=== PATIENT | male | born 1980 | race Caucasian/White ===

== ENCOUNTER 2018-01-11 22:22 | Emergency (ER) | payer OTHER, SELFPAY ==
[2018-01-11] MEDS ORDERED: Ketorolac Tromethamine 30 MG/ML VIAL ONE (22:31)
[2018-01-11 22:46] LABS: #Basophils 0.1 thou/uL (0.0-0.2); #Eosinphils 0.2 thou/uL (0.0-0.7); #Lymphocytes 2.4 thou/uL (1.20-3.40); #Monocytes 1.2 thou/uL (0.11-0.59); #Neutrophils 9.4 thou/uL (1.40-6.50); %Basophils 1.1 % (0.0-1.0); %Eosinophils 1.7 % (0.0-10.0); %Lymphocytes 18.3 % (21.0-51.0); %Monocytes 8.7 % (0.0-10.0); %Neutrophils 70.3 % (42.0-75.0); Hemoglobin 16.4 g/dL (14.0-18.0); Mean Corpuscular HGB CONC 36.2 g/dL (32.0-36.0); Mean Corpuscular Hemoglobin 32.7 pg (27.0-31.0); Mean Corpuscular Volume 90.3 fl (80.0-94.0); Mean Platelet Volume 7.8 fL (7.4-10.4); Platelet Count 370 thou/uL (130-400); RBC Distribution Width 12.4 % (11.5-14.5); Red Blood Cell (RBC) Count 5.03 mill/uL (4.70-6.10); White Blood Cell (WBC) Count 13.3 thou/uL (4.8-10.8)
[2018-01-11 22:52] LABS: INR-International Normal Ratio 1.1; PTT 33.7 SEC (22.9-36.1); Prothrombin Time 13.8 SEC (12.0-14.7)
[2018-01-11 23:02] LABS: ALT (SGPT) 19 U/L (8-55); AST (SGOT) 22 U/L (5-34); Albumin 4.6 g/dL (3.5-5.0); Alcohol Less than 10 mg/dL (Less than 10); Alkaline Phosphatase 91 U/L (40-150); Anion Gap 14 mmol/L (10-20); BUN (Urea Nitrogen) 26 mg/dL (8.9-20.6); Bilirubin, Total 0.4 mg/dL (0.2-1.2); Calc. Creatinine Clearance 0 mL/min (70-130); Calcium 9.6 mg/dL (7.8-10.44); Carbon Dioxide 29 mmol/L (22-29); Chloride 101 mmol/L (98-107); Estimated GFR-MDRD 57; Globulin 3.1 g/dL (2.4-3.5); Glucose 90 mg/dL (70-105); Potassium 4.4 mmol/L (3.5-5.1); Protein, Total 7.7 g/dL (6.0-8.3); Sodium 140 mmol/L (136-145)
[2018-01-11] MEDS ORDERED: Acetaminophen 500 MG TAB ONE (23:19)
--- NOTE | 2018-01-12 07:26 | RAD ---
PELVIS 1 VIEW: Date: 01/11/18 FINDINGS: No fracture evident. SI joints symmetrical and symphysis shows no widening or offset. Pubic rings alec ear intact and the hip joints appear normal bilaterally. As best as I can tell, the arcuate lines of the sacrum appear intact. Subtle injuries there would be missed. IMPRESSION: No acute findings. POS: HOME
--- NOTE | 2018-01-12 07:30 | RAD ---
PORTABLE CHEST: Date: 01/11/18 An AP portable film at 2231 hours shows a normal sized heart and clear lungs. There is no mediastinal widening or shift. Trachea is midline. Lungs are fully inflated and clear. No sign of pneumothorax. No fractures appreciated. IMPRESSION: No acute thoracic finding. POS: HOME
--- NOTE | 2018-01-12 07:31 | RAD ---
LEFT LEG: Date: 01/11/18 AP and lateral views show no fracture. Tibia and fibula appear intact. No joint effusion indicated at the knee. Knee joint and ankle joint appear normal. IMPRESSION: No acute findings. POS: HOME
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
== END 2018-01-12 00:25 | disposition home or self-care (01) ==
LOC: BURERS 22:22
DX: S80.12XA Contusion of left lower leg, initial encounter (principal); F17.210 Nicotine dependence, cigarettes, uncomplicated; V29.49XA Motorcycle driver injured in collision with other motor vehicles in traffic accident, initial encounter
CPT/HCPCS: 70450; 71045; 72125; 72170; 80053; 80307; 85025; 85610; 85730; 96374; G0390; J1885; J7620